=== PATIENT | female | born 1995 | race Caucasian/White ===

== ENCOUNTER 2016-07-09 16:04 | Emergency (ER) | payer SELFPAY ==
[2016-07-09] MEDS ORDERED: ACETAMINOPHEN 325 MG TABLET ONE (16:49)
[2016-07-09 16:51] LABS: HCG,QUALITATIVE URINE NEGATIVE
[2016-07-09] MEDS ORDERED: IBUPROFEN 600 MG TABLET ONE (16:55)
--- NOTE | 2016-07-09 17:24 | RAD ---
CHEST 2 VIEWS HISTORY: Status post fall, injury of the anterior chest/sternum. Frontal and lateral chest radiographs dated 07/09/2016. COMPARISON: None. FINDINGS: FOCAL AIRSPACE OPACITY: No gross airspace consolidation. PLEURAL EFFUSION: None. CARDIOMEDIASTINAL SILHOUETTE: Nonenlarged. PNEUMOTHORAX: None identified. OSSEOUS STRUCTURES: No grossly destructive lesions. Limited visualization of the sternum on lateral view. IMPRESSION: No acute cardiopulmonary process noted. Evaluation of the sternum is limited on this series, if further evaluation is clinically warranted consider dedicated sternal series versus CT assessment.
[2016-07-09 17:32] LABS: AMPHETAMINES/METHAMPHETAMINES POSITIVE (NEGATIVE); COCAINE NEGATIVE (NEGATIVE); MARIJUANA NEGATIVE (NEGATIVE); METHADONE NEGATIVE (NEGATIVE); OPIATES POSITIVE (NEGATIVE); TRICYCLIC ANTIDEPRESSANTS NEGATIVE (NEGATIVE)
== END 2016-07-09 17:55 | disposition home or self-care (01) ==
LOC: ED 16:04
DX: S20.219A Contusion of unspecified front wall of thorax, initial encounter (principal); R07.9 Chest pain, unspecified; F15.90 Other stimulant use, unspecified, uncomplicated; F16.90 Hallucinogen use, unspecified, uncomplicated; F11.90 Opioid use, unspecified, uncomplicated; W18.2XXA Fall in (into) shower or empty bathtub, initial encounter; Y93.E1 Activity, personal bathing and showering; Y92.9 Unspecified place or not applicable
CPT/HCPCS: 81025; 80305; 71020; 99283 ×2; 93005; A9270 ×2